=== PATIENT | female | born 1970 | race Caucasian/White ===

== ENCOUNTER 2023-10-07 09:16 | Day surgery (SDC) | payer OTHER ==
[~2023-10-07] VITALS: Ht 154.9 cm; Wt 71.7 kg
[2023-10-07] MEDS ORDERED: LIDOCAINE 2% 100 MG/5 ML UJET TP ONE (09:58)
[2023-10-07] MEDS: fentaNYL citrate 0.05 MG/ML VIAL ONE (10:35)
== END 2023-10-07 11:22 | disposition home or self-care (01) ==
LOC: MMU 09:16 → MDS 09:16
PROVIDERS: ATTEND Internal Medicine Gastroenterology
DX: Z12.11 Encounter for screening for malignant neoplasm of colon (principal); K57.30 Diverticulosis of large intestine without perforation or abscess without bleeding; Z90.710 Acquired absence of both cervix and uterus
CPT/HCPCS: 45378; J3010